=== PATIENT | female | born 1995 | race African-American/Black ===

== ENCOUNTER 2018-12-16 09:54 | Emergency (ER) | payer SELFPAY ==
[2018-12-16 10:45] LABS: BASOPHILS % (AUTO) 0.5 %; HGB - HEMOGLOBIN 12.1 g/dL (12.0-16.0); LYMPHOCYTES # (AUTO) 2.1 10^3/uL (1.5-3.5); LYMPHOCYTES % (AUTO) 27.6 %; MEAN CORPUSCULAR HEMOGLOBIN 28.9 pg (27.0-31.0); MEAN CORPUSCULAR HGB CONC 33.8 g/dL (32.0-36.0); MEAN CORPUSCULAR VOLUME 85.6 fL (81.0-99.0); MONOCYTES # (AUTO) 0.7 10^3/uL (0.0-1.0); MONOCYTES % (AUTO) 8.5 %; NEUTROPHILS # (AUTO) 4.9 10^3/uL (1.5-6.6); NEUTROPHILS % (AUTO) 63.1 %; PLT - PLATELET COUNT 333 10^3/uL (130-450); RED BLOOD COUNT 4.18 10^6/uL (4.20-5.40); RED CELL DISTRIBUTION WIDTH 13.3 % (12.0-15.0); WHITE BLOOD COUNT 7.7 x10^3/uL (4.8-10.8)
[2018-12-16 10:48] LABS: BILIRUBIN,URINE NEGATIVE (NEGATIVE); GLUCOSE, URINE (UA) NEGATIVE (NEGATIVE); KETONES,URINE (UA) NEGATIVE (NEGATIVE); LEUKOCYTE ESTERASE, URINE NEGATIVE (NEGATIVE); NITRITE,URINE NEGATIVE (NEGATIVE); OCCULT BLOOD,URINE NEGATIVE (NEGATIVE); PROTEIN,URINE NEGATIVE (NEGATIVE); UROBILINOGEN,URINE 0.2 (NORMAL) E.U./dL (NORMAL)
[2018-12-16 10:54] LABS: CLARITY,URINE CLEAR (CLEAR)
[2018-12-16 10:55] LABS: HCG UR QUAL POSITIVE
[2018-12-16 11:01] LABS: ALBUMIN 3.7 g/dL (3.2-5.5); ALBUMIN/GLOBULIN RATIO 1.1 (1.0-2.2); BILIRUBIN,TOTAL 0.6 mg/dL (0.2-1.0); CALCIUM 9.2 mg/dL (8.5-10.3); CREATININE 0.6 mg/dL (0.4-1.0)
[2018-12-16 11:09] LABS: PLATELET ESTIMATE, MANUAL NORMAL (130-450,000) (NORMAL); PLATELET MORPHOLOGY NORMAL APPEARANCE (NORMAL); RBC MORPHOLOGY (MULTIPLE) NORMAL APPEARANCE (NORMAL)
--- NOTE | 2018-12-16 12:12 | Ultrasound Report ---
Reason: cramping and spotting at 8 weeks gestation Procedure Date: 12/16/2018 Accession Number: [id number] / [id number] Procedure: US - OB First Trimester CPT Code: FULL RESULT: EXAM: FIRST TRIMESTER OBSTETRIC ULTRASOUND (Less than 11 weeks) EXAM DATE: 12/16/2018 12:01 PM. CLINICAL HISTORY: Cramping and spotting at 8 weeks gestation. LMP: 10/16/2018. COMPARISONS: OB FIRST TRIMESTER 12/16/2018 11:14 AM. TECHNIQUE: Transabdominal and transvaginal ultrasound examination with static image documentation. CLINICAL DATES: EGA 8 weeks 5 days with SUE 07/23/2019 based on LMP. ASSESSMENT: Gestational Sac: Single intrauterine. Mean gestational sac diameter: 32.4 mm = 8 weeks 3 days. Embryo: CRL (crown-rump length) 15.3 mm = 7 weeks 6 days. Cardiac activity: 148 beats per minute. Yolk sac: 2.9 mm. Amniotic fluid: Not accurately assessed at this gestational age. Early placenta: Not visible at this gestational age. Other: A small perigestational fluid collection measuring 1.1 x 1.1 x 0.6 cm is noted. MATERNAL STRUCTURES: Uterus: Anteverted. Unremarkable. Cervix: Closed. Right Ovary/Adnexa: The ovary measures 3.2 x 2.6 x 2.1 cm, volume 9.1 cc. Corpus luteum is noted. Left Ovary/Adnexa: The ovary measures 2.6 x 1.4 x 2.9 cm, volume 5.5 cc. Unremarkable. Free Fluid: None. Other: None. IMPRESSION: 1. Single viable intrauterine at EGA 7 weeks 6 days with SUE 07/29/2019 based on crown-rump length, which is discordant with LMP. 2. Assigned dating is SUE 07/29/2019 based on current ultrasound. 3. Small perigestational fluid collection. RADIA
--- NOTE | 2018-12-16 12:51 | ED Physician Documentation ---
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 She reports nausea, without vomiting. She denies fever or dysuria. Her last menstrual period was 2 months ago. She is currently visiting here from [place]. Review of Systems Constitutional: denies: Fever Nose: denies: Congestion Throat: denies: Sore throat Cardiac: denies: Chest pain / pressure Respiratory: denies: Dyspnea, Cough GI: reports: Abdominal Pain (cramping.), Nausea. denies: Vomiting, Diarrhea : reports: Vaginal bleeding (spotting), Now EGA (about 8 weeks' gestation.). denies: Dysuria Skin: denies: Rash Musculoskeletal: denies: Back pain Neurologic: denies: Headache PD PAST MEDICAL HISTORY - Past Medical History Endocrine/Autoimmune: None - Present Medications Home Medications: Ambulatory Orders Medication Instructions Recorded Confirmed Promethazine [Phenergan] 25 mg PO Q6H PRN #10 tab 12/16/18 - Allergies Allergies/Adverse Reactions: Allergies Allergy/AdvReac Type Severity Reaction Status Date / Time No Known Drug Allergies Allergy Verified 12/16/18 10:04 - Social History Does the pt smoke?: No - Immunizations Immunizations are current?: Yes PD ED PE NORMAL - Vitals Vital signs reviewed: Yes (normal) - General General: Alert and oriented X 3, Well developed/nourished - HEENT HEENT: Atraumatic, Moist mucous membranes, Pharynx benign - Neck Neck: Supple, no meningeal sign - Cardiac Cardiac: RRR - Respiratory Respiratory: No respiratory distress, Clear bilaterally - Abdomen Abdomen: Soft, Non tender - Back Back: No CVA TTP - Derm Derm: No rash - Extremities Extremities: No edema, No calf tenderness / cord - Neuro Neuro: Alert and oriented X 3, No motor deficit, Normal speech PD ED PE EXPANDED - Female Female : Normal external, Enlarged uterus, Cultures sent, Certified [employer] present. No: Vaginal Bleeding, Vaginal Discharge, Dilated cervix, Tissue present, Adnexal Mass, Adnexal Tenderness Results - Vitals Vitals: Oxygen O2 Source Room air - Labs Labs: Laboratory Tests 12/16/18 12/16/18 12/16/18 10:30 10:34 10:34 WBC 7.7 RBC 4.18 L Hgb 12.1 Hct 35.8 L MCV 85.6 MCH 28.9 MCHC 33.8 RDW 13.3 Plt Count 333 MPV 10.0 Neut # (Auto) 4.9 Lymph # (Auto) 2.1 Jennings # (Auto) 0.7 Eos # (Auto) 0.0 Baso # (Auto) 0.0 Absolute Nucleated RBC 0.00 Nucleated RBC % 0.0 Manual Slide Review Indicated WBC Morphology Platelet Estimate NORMAL (130-450,000) Platelet Morphology NORMAL APPEARANCE RBC Morph Micro Appear NORMAL APPEARANCE Sodium 137 Potassium 3.9 Chloride 105 Carbon Dioxide 20 L Anion Gap 12.0 BUN 7 Creatinine 0.6 Estimated GFR (MDRD) 148 Glucose 85 Calcium 9.2 Total Bilirubin 0.6 AST 15 ALT 14 Alkaline Phosphatase 77 Total Protein 7.0 Albumin 3.7 Globulin 3.3 Albumin/Globulin Ratio 1.1 Lipase 20 L HCG, Quant Urine Color YELLOW Urine Clarity CLEAR Urine pH 8.0 H Ur Specific [place] 1.010 Urine Protein NEGATIVE Urine Glucose (UA) NEGATIVE Urine Ketones NEGATIVE Urine Occult Blood NEGATIVE Urine Nitrite NEGATIVE Urine Bilirubin NEGATIVE Urine Urobilinogen 0.2 (NORMAL) Ur Leukocyte Esterase NEGATIVE Ur Microscopic Review NOT INDICATED Urine Culture Comments NOT INDICATED Urine HCG, Qual POSITIVE Chlam trachomat DNA PCR N.gonorrhoeae DNA (PCR) T. vaginalis (PCR) 12/16/18 12/16/18 10:34 12:08 WBC RBC Hgb Hct MCV MCH MCHC RDW Plt Count MPV Neut # (Auto) Lymph # (Auto) Jennings # (Auto) Eos # (Auto) Baso # (Auto) Absolute Nucleated RBC Nucleated RBC % Manual Slide Review WBC Morphology Platelet Estimate Platelet Morphology RBC Morph Micro Appear Sodium Potassium Chloride Carbon Dioxide Anion Gap BUN Creatinine Estimated GFR (MDRD) Glucose Calcium Total Bilirubin AST ALT Alkaline Phosphatase Total Protein Albumin Globulin Albumin/Globulin Ratio Lipase HCG, Quant 85961.00 Urine Color Urine Clarity Urine pH Ur Specific [place] Urine Protein Urine Glucose (UA) Urine Ketones Urine Occult Blood Urine Nitrite Urine Bilirubin Urine Urobilinogen Ur Leukocyte Esterase Ur Microscopic Review Urine Culture Comments Urine HCG, Qual Chlam trachomat DNA PCR NEGATIVE N.gonorrhoeae DNA (PCR) NEGATIVE T. vaginalis (PCR) NEGATIVE - Rads (name of study) Pelvic U/S Radiology: Prelim report reviewed, EMP read contemporaneously, See rad report (Single viable IUP at EGA 7 weeks 6 days with SUE 07/29/2019 based on crown-rump length, which is discordant with LMP. Assigned dating of SUE 07/29/2019 based on current ultrasound. Small tamiko-gestational fluid collection.) PD MEDICAL DECISION MAKING - ED course Complexity details: reviewed results, re-evaluated patient, considered differential, d/w patient ED course: The patient's presentation is significant for the cramping during first trimester of , with pelvic ultrasound revealing a single intrauterine at an estimated age of 7 weeks 6 days. There is no evidence of vaginal bleeding on examination. She remained asymptomatic while in the emergency department. I discussed with her the results of her workup, symptomatic treatment and outpatient follow-up, as well as potentially worrisome signs or symptoms that should prompt reevaluation in the emergency department. She is being discharged with a prescription for Phenergan. Departure - Departure Disposition: 01 Home, Self Care Clinical Impression: Pelvic cramping, First trimester Condition: Stable Instructions: ED Preg Morning Sickness Prescriptions: Promethazine [Phenergan] 25 mg PO Q6H PRN #10 tab PRN Reason: Nausea / Vomiting Comments: You can use Tylenol, up to 650 mg every 4 hours, if needed for discomfort. You can use Phenergan as prescribed if needed for nausea. Drink plenty of fluids. Follow-up with your primary physician upon return to [place]. Return to the emergency department if you develop increasing abdominal pain, increasing vaginal bleeding, persistent vomiting, or otherwise worsening symptoms. Discharge Date/Time: 12/16/18 13:23
[2018-12-16 13:13] VITALS: BP 103/56
[2018-12-16 21:27] LABS: TRICHOMONAS VAGINALIS DNA NEGATIVE (NEGATIVE)
== END 2018-12-16 13:23 | disposition home or self-care (01) ==
LOC: ED 09:54
DX: O99.89 Other specified diseases and conditions complicating pregnancy, childbirth and the puerperium (principal); R10.2 Pelvic and perineal pain; Z3A.01 Less than 8 weeks gestation of pregnancy
CPT/HCPCS: 36415; 76801; 76817; 80053; 81001; 81003; 81025; 83690; 84702; 85025; 87086; 87491; 87591; 87661; 99284